=== PATIENT | female | born 1975 | race Two or more races ===

== ENCOUNTER 2024-04-20 09:50 | Emergency (ER) | payer MEDICAID, SELFPAY ==
[2024-04-20 09:57] VITALS: BP 119/83; PULSE 91; RESP 16; TEMP 36.8; O2SAT 100; BMI 34.5
--- NOTE | 2024-04-20 10:11 | XR_ITS ---
Examination: PA lateral chest 2 views TECHNIQUE: Upright PA lateral chest 2 views Exam date and time: April 20, 2024 1021 hours Comparison June 02, 2023 INDICATIONS: Onset chest pain today. FINDINGS: Normal heart size Lungs are clear. The osseous structures are intact IMPRESSION: No active disease
--- NOTE | 2024-04-20 10:17 | PD.EDRME ---
Rapid Medical Screening Exam RME Arrival date/time: 04/20/24 09:50 This is 48-year-old female here with complaints of epigastric pain radiating to her chest. I have greeted and performed a focused initial assessment of this patient. Initial appropriate labs ordered at this time. A comprehensive ED assessment and evaluation of the patient and analysis of all test and completion of medical decision making process will be conducted by additional ED provider. Chief Complaint: Chest Pain Time Seen by Provider: 04/20/24 09:55 Vital signs: Vital Signs Temperature 98.3 F 04/20/24 09:57 Pulse Rate 91 04/20/24 09:57 Respiratory Rate 16 04/20/24 09:57 Blood Pressure 119/83 04/20/24 09:57 Pulse Oximetry (%) 100 04/20/24 09:57 Oxygen Delivery Method Room Air 04/20/24 09:57
[2024-04-20 10:55] LABS: Basophils % (Auto) 0 % (0-2.5); Eosinophils # (Auto) 0.1 Thou/mm3 (0.0-0.5); Eosinophils % (Auto) 1 % (0-10); Hematocrit 42.3 % (36.0-46.0); Hemoglobin 14.5 g/dL (12.0-16.0); Immature Granulocytes % (Auto) 0 % (0-0); Immature Granulocytes Auto 0.03 Thou/mm3 (0.00-0.00); Lymphocytes # (Auto) 0.5 Thou/mm3 (1.0-4.8); Lymphocytes % (Auto) 4 % (10-50); Mean Corpuscular HGB Conc 34.3 g/dl (31.0-37.0); Mean Corpuscular Volume 88 fL (80-100); Monocytes # (Auto) 0.5 Thou/mm3 (0.0-0.8); Monocytes % (Auto) 4 % (0-12); Neutrophils # (Auto) 10.6 Thou/mm3 (1.8-7.7); Neutrophils % (Auto) 90 % (37-80); Nucleated Red Blood Cell % 0 /100 WBC (0); Platelet Count 131 Thou/mm3 (140-440); RDW Standard Deviation 40.7 fL (36.4-46.3); Red Blood Count 4.83 Miln/mm3 (4.00-5.20); White Blood Count 11.8 Thou/mm3 (3.6-11.0)
[2024-04-20 11:07] LABS: Partial Thromboplastin Time 27.2 Seconds (22.0-36.0); Prothrombin Time 10.7 Seconds (9.0-12.2)
[2024-04-20 11:11] LABS: B-Type Natriuretic Peptide < 20 pg/mL (0-100)
[2024-04-20] MEDS: ONDANSETRON ODT 4 MG TABRAP PO (11:28)
[2024-04-20] MEDS: LIDOCAINE VISCOUS 2% 15 ML UDC PO (11:28)
[2024-04-20] MEDS: MG HYD/AL HYD/SIME (Maalox Reg) SUSP 30 ML UDC PO (11:29)
[2024-04-20 11:46] LABS: Alanine Aminotransferase 41 U/L (10-49); Albumin, Serum 4.7 gm/dL (3.5-5.0); Albumin/Globulin Ratio 1.9 (1.2-2.2); Alkaline Phosphatase 122 U/L (46-116); Anion Gap 7 (7-16); Aspartate Amino Transferase 34 U/L (0-34); BUN/Creatinine Ratio 13 Ratio (12-20); Blood Urea Nitrogen 9 mg/dL (9-23); Calcium 9.7 mg/dL (8.3-10.6); Calcium (Corrected) 9.7 mg/dL (8.5-10.1); Carbon Dioxide 24.3 mMol/L (20.0-31.0); Chloride 107 mMol/L (98-107); Creatinine (Component) 0.7 mg/dL (0.6-1.3); Globulin 2.5 gm/dL (2.3-3.5); Glucose 116 mg/dL (74-106); Lipase 45 U/L (12-53); Osmolality,Calculated 275 (275-295); Potassium 4.2 mMol/L (3.4-5.1); Sodium 138 mMol/L (136-145); Total Protein 7.2 gm/dL (5.7-8.2); Troponin I < 0.002 ng/mL (0.0-0.045); eGFR > 60 See Note
--- NOTE | 2024-04-20 12:00 | PC.NURSE ---
Pt coming in from ED lobby c/o epigastric pain that has radiated to midline sternal chest pain since 6am this morning. Pt did state eating a lotta chili last night. Pt has hx of gastric ulcers , GERD, and hypotension. Pt connected to monitors at this time.
[2024-04-20 12:05] VITALS: BP 114/69; PULSE 79; RESP 13; TEMP 36.7; O2SAT 95
--- NOTE | 2024-04-20 12:12 | EDNOTE_ITS ---
ED Chest Pain RME/HPI General Chief Complaint: Chest Pain Stated Complaint: SHARP CHEST AND EPIGASTRIC PAIN X 0730; VOMITING Time Seen by Provider: 04/20/24 09:55 Arrival date/time: 04/20/24 09:50 RME / HPI RME / HPI narrative: 48-year-old female patient with no significant medical history, came in for evaluation regarding epigastric pain. Onset of symptoms since 730 this morning as epigastric pain, described as sharp pain, radiating to the substernal area, severity moderate. Patient also vomited, nonbloody severity mild. Denies any diarrhea or constipation. Patient told me that she ate chili last night. Patient abdominal surgery include laparoscopic cholecystectomy. Related Data Home Medications ?Medication ?Instructions ?Recorded ?Confirmed omeprazole 40 mg capsule,delayed 40 mg PO QDAY 09/08/20 08/18/21 release epinephrine 0.3 mg/0.3 mL See Rx Instructions .Route .COMPLEX 08/18/21 08/18/21 injection, auto-injector famotidine 20 mg tablet 203 mg PO QDAY 08/18/21 08/18/21 meloxicam 7.5 mg tablet 7.5 mg PO QDAY 08/18/21 08/18/21 sumatriptan succinate 100 mg tablet See Rx Instructions .Route .COMPLEX 08/18/21 08/18/21 Previous Rx's ?Medication ?Instructions ?Recorded aspirin 81 mg tablet,delayed 81 mg PO QDAY #30 tabs 11/25/21 release (Ecotrin Low Strength) midodrine 10 mg tablet 10 mg PO TID PRN LOW BLOOD 11/25/21 PRESSURE #45 tabs ibuprofen 800 mg tablet 800 mg PO TID PRN pain #30 tabs 02/23/23 albuterol sulfate 90 mcg/actuation 2 puff inhalation Q6H PRN 04/12/23 aerosol inhaler (Ventolin HFA) shortness of breath or wheezing #8.5 grams benzonatate 100 mg capsule 100 mg PO TID #14 caps 04/12/23 metoclopramide HCl 10 mg tablet 10 mg PO Q6H PRN nausea and 04/20/24 (Reglan) vomiting #20 tabs pantoprazole 40 mg tablet,delayed 40 mg PO QDAY #20 tabs 04/20/24 release (Protonix) Allergies Allergy/AdvReac Type Severity Reaction Status Date / Time meclizine Allergy DROPS BP; Verified 04/20/24 09:52 KEEPS AWAKE Review of Systems Review of Systems Narrative Review of Systems: Review of system reviewed and within normal limits except mentioned in HPI ED Exam Narrative Physical exam: VITAL SIGNS: Reviewed. GENERAL APPEARANCE: Alert and interactive, follows commands, no acute distress, HEAD AND FACE: Non-traumatic. ENT: PERRL, pink conjunctivitis, eyelid no trauma, Mucous membrane moist. NECK: Supple, nontender, no nuchal rigidity. CHEST: No tenderness, no crepitus, no paradoxical movement, no retractions. LUNGS: Clear, well ventilated, symmetric, no rales, no wheezing, no ronchi, no stridor, good breath sounds bilaterally. HEART: Regular rate, regular rhythm, no murmur, no gallops. ABDOMEN: Soft, positive bowel sounds, nondistended, no guarding, epigastric tenderness, no rebound, no masses, RECTAL: Deferred. GENITAL: Deferred. NEUROLOGICAL: Gross motor function intact sensory function intact, Appropriate for age. MUSCULOSKELETAL: low back nontender, full range of motion. EXTREMITIES: Nontender, full range of motion. SKIN: Color pink, dry, no rash, no lacerations, no abrasions, no contusions. LYMPHATICS: Deferred. Course Quality Measures none Orders Category Date Time Status EKG (ED ONLY) *Do not use* NOW Care 04/20/24 10:11 Completed EKG (ED Only) Stat Exams 04/20/24 10:11 Ordered XR chest 2V Stat Exams 04/20/24 10:11 Completed B-Type Natriuretic Peptide Stat Lab 04/20/24 10:38 Completed CBC Stat Lab 04/20/24 10:38 Completed Comprehensive Metabolic Panel Stat Lab 04/20/24 10:38 Completed Lipase Stat Lab 04/20/24 10:38 Completed Magnesium Stat Lab 04/20/24 10:38 Completed Partial Thromboplastin Time Stat Lab 04/20/24 10:38 Completed Prothrombin Time with INR Stat Lab 04/20/24 10:38 Completed Troponin I Stat Lab 04/20/24 10:38 Completed Ketorolac Inj [Toradol Inj] Med 04/20/24 12:11 Discontinued 30 mg IM X1 ONE Lidocaine 2% Viscous [Xylocaine 2% Viscous] Med 04/20/24 10:11 Discontinued 15 ml PO X1 ONE Metoclopramide [Reglan] Med 04/20/24 12:11 Discontinued 10 mg PO X1 ONE Ondansetron Odt [Zofran Odt] Med 04/20/24 10:11 Discontinued 4 mg PO X1 ONE mg Hyd/Al Hyd/May Susp [Maalox Susp] Med 04/20/24 10:11 Discontinued 30 ml PO X1 ONE Vital Signs Vital signs: Vital Signs Temperature 98.3 F 04/20/24 09:57 Pulse Rate 91 04/20/24 09:57 Respiratory Rate 16 04/20/24 09:57 Blood Pressure 119/83 04/20/24 09:57 Pulse Oximetry (%) 100 04/20/24 09:57 Oxygen Delivery Method Room Air 04/20/24 09:57 Chest Pain MDM Narrative MDM Narrative:: 48-year-old female patient with no significant medical history, came in for evaluation regarding epigastric pain. Onset of symptoms since 730 this morning as epigastric pain, described as sharp pain, radiating to the substernal area, severity moderate. Patient also vomited, nonbloody severity mild. Denies any diarrhea or constipation. Patient told me that she ate chili last night. Patient abdominal surgery include laparoscopic cholecystectomy. Cardiac workup all came back normal. Chest x-ray also came back unremarkable. CMP all came back unremarkable patient was given Toradol, GI cocktail, Reglan and Zofran with complete resolution of symptoms. Patient data External records reviewed:: None Clinical information provided by:: none Social determinants that could affect healthcare access:: none Patient has the following chronic illnesses:: None How is presenting disease/condition affected by chronic disease/condition?: no chronic disease Evaluation data The following diagnostics were reviewed and interpreted by me:: lab results, radiology exam(s) and EKG tracing(s) Lab and/or radiology exams considered but not ordered:: None Interpretation Summary: EKG as interpreted by me showed sinus rhythm, ventricular rate of 70 bpm, per interval 147 MS, ST segment elevation depression noted. Laboratory workup including troponin all came back normal. I personally reviewed and interpreted the x-ray of this patient. There is no acute abnormalities found, no infiltrates no pneumothorax no hemothorax normal chest x-ray. Review of other structures was without significant abnormal findings also. I additionally reviewed the radiologist report and agree with the interpretation. Medications / Prescriptions Medications or Prescriptions considered but not ordered:: None Medication administrations:: Medication Administration History Discontinued Medications Al Hydrox/Mg Hydrox/Simethicone (Mg Hyd/Al Hyd/May (Maalox Reg) Susp 30 Ml Udc) 30 ml PO X1 ONE Stop: 04/20/24 10:12 Last Admin: 04/20/24 11:29 Dose: 30 ml Documented By: JONATHAN Ketorolac Tromethamine (Ketorolac Inj 60 Mg/2 Ml Vial) 30 mg IM X1 ONE Stop: 04/20/24 12:12 Last Admin: 04/20/24 12:48 Dose: 30 mg Documented By: WESLEY Lidocaine HCl (Lidocaine Viscous 2% 15 Ml Udc) 15 ml PO X1 ONE Stop: 04/20/24 10:12 Last Admin: 04/20/24 11:28 Dose: 15 ml Documented By: JONATHAN Metoclopramide HCl (Metoclopramide 5 Mg Tablet) 10 mg PO X1 ONE Stop: 04/20/24 12:12 Last Admin: 04/20/24 12:48 Dose: 10 mg Documented By: GM Ondansetron HCl (Ondansetron Odt 4 Mg Tabrap) 4 mg PO X1 ONE Stop: 04/20/24 10:12 Last Admin: 04/20/24 11:28 Dose: 4 mg Documented By: JONATHAN Zojose Camilolan GI cocktail Toradol with complete resolution of symptoms Consultations Consultation(s) initiated? (list below): No Diagnosis Chest Pain Differential Diagnosis: pneumothorax, atypical chest pain, chest pain and other (Epigastric abdominal pain) Most likely diagnosis given after review of the tests above:: Epigastric abdominal pain Admission Indicated Admission indicated?: not indicated Admission Request Was there a request for admission?: No Disposition Plan Disposition Plan: Discharge Discharge Attestation Discharge Attestation: The patient and all family members were given an opportunity to ask questions and understood the discharge instructions. Discharge instructions specifically effects, indications for sooner follow up or return to the emergency department, and the expected course of current diagnosis. Patient condition: Stable Discharge Plan Plan Patient Disposition: HOME (Self Care) Disposition Comment: stable Prescriptions/Referrals Prescriptions/Med Rec: New metoclopramide HCl [Reglan] 10 mg tablet 10 mg PO Q6H PRN (Reason: nausea and vomiting) Qty: 20 0RF pantoprazole [Protonix] 40 mg tablet,delayed release (DR/EC) 40 mg PO QDAY Qty: 20 0RF No Action omeprazole 40 mg Capsule,Delayed Release(Dr/Ec) 40 mg PO QDAY sumatriptan succinate 100 mg tablet See Rx Instructions .ROUTE .COMPLEX Patient Comments: PLEASE SEE ATTACHED FOR DETAILED DIRECTIONS Rx Instructions: PLEASE SEE ATTATCHED FOR DETAILED DIRECTIONS meloxicam 7.5 mg tablet 7.5 mg PO QDAY famotidine 20 mg tablet 203 mg PO QDAY Patient Comments: TKAE 1 TABLET BY MOUTH AT BEDTIME epinephrine 0.3 mg/0.3 mL auto-injector See Rx Instructions .ROUTE .COMPLEX Patient Comments: USE DIRECTED FOR ACUTE ALLERGIC REACTIONS Rx Instructions: USE DIRECTED FOR ACUTE ALLERGIC REACTIONS aspirin [Ecotrin Low Strength] 81 mg tablet,delayed release (DR/EC) 81 mg PO QDAY Qty: 30 0RF midodrine 10 mg tablet 10 mg PO TID PRN (Reason: LOW BLOOD PRESSURE) Qty: 45 0RF Rx Instructions: do not give last dose of day after 6PM or within 4 hrs of bedtime ibuprofen 800 mg tablet 800 mg PO TID PRN (Reason: pain) Qty: 30 0RF benzonatate 100 mg capsule 100 mg PO TID Qty: 14 0RF albuterol sulfate [Ventolin HFA] 90 mcg/actuation HFA aerosol inhaler 2 puff inhalation Q6H PRN (Reason: shortness of breath or wheezing) Qty: 8.5 0RF Referrals: Andres Hilliard FNP [Primary Care Provider] - In 1 week Problem List Clinical Impression: Epigastric abdominal pain Patient/Caregiver Discharge Instructions Discharge Activity: activity as tolerated Education Materials: ED Epigastric Pain (Uncertain Cause) Additional Instructions: Thank you for the opportunity for serving you today. You are stable for discharged . You are advised to: Follow-up with your PCP in 1 to 2 days Return to ED for worsening of symptoms Increase oral fluids Take medication as prescribed Print Language: Puerto Rican Stand Alone Forms: Geovanna Award Info., Patient Portal Info Letter NELI/LUC Supervising Physician NELI/LUC Supervising Physician: MD Trav
[2024-04-20] MEDS: METOCLOPRAMIDE 5 MG TABLET 10 MG PO (12:48)
[2024-04-20] MEDS: KETOROLAC INJ 60 MG/2 ML VIAL 30 MG IM (12:48)
[2024-04-20 14:12] VITALS: BP 109/65; PULSE 73; RESP 18; TEMP 36.8; O2SAT 96
[2024-04-20 14:45] LABS: Bilirubin,Total 0.8 mg/dL (0.3-1.2)
[2024-04-20 15:09] VITALS: BP 114/68; PULSE 86; RESP 16; TEMP 36.9; O2SAT 95
== END 2024-04-20 15:15 | disposition home or self-care (01) ==
PROVIDERS: Nurse Practitioner Primary Care; Emergency Provider Emergency Medicine; PCP Nurse Practitioner Family
DX: R10.13 Epigastric pain (principal); R07.9 Chest pain, unspecified; R94.31 Abnormal electrocardiogram [ECG] [EKG]
CPT/HCPCS: 36415; 71046; 80053; 83690; 83735; 83880; 84484; 85025; 85610; 85730; 93005; 99283; J1885; J3490; Q0162; A9270

== ENCOUNTER 2024-09-12 07:30 | Emergency (ER) | payer MEDICAID, SELFPAY ==
[2024-09-12 07:31] VITALS: BMI 34.9
[2024-09-12 07:43] VITALS: BP 112/77; PULSE 66; RESP 17; TEMP 36.7; O2SAT 97; BMI 36.8
--- NOTE | 2024-09-12 07:47 | EKG_ITS ---
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
--- NOTE | 2024-09-12 07:48 | PD.EDRME ---
Rapid Medical Screening Exam [facility] Arrival date/time: 09/12/24 07:30 48-year-old female with no known medical history presents to the emergency room with a chief complaint of dizziness and lightheadedness x 2 days. Patient states her dizziness is worse with sudden positional changes. Patient also states even while sitting down she has a headache and feels like the room is spinning. I have greeted and performed a focused initial assessment of this patient. A comprehensive ED assessment and evaluation of the patient, analysis of all test results, and completion of the medical decision making process will be conducted by additional ED providers. Chief Complaint: Dizziness Vital signs: Vital Signs Temperature 98.1 F 09/12/24 07:43 Pulse Rate 66 09/12/24 07:43 Respiratory Rate 17 09/12/24 07:43 Blood Pressure 112/77 09/12/24 07:43 Pulse Oximetry (%) 97 09/12/24 07:43 Oxygen Delivery Method Room Air 09/12/24 07:43 Vital signs reviewed by provider: Yes
[2024-09-12 08:32] LABS: Collection Type, Urine Clean Catch
[2024-09-12 09:14] LABS: Bacteria,Urine Rare; Bilirubin,Urine Negative (Negative); Blood,Urine Negative (Negative); Clarity,Urine Clear (Clear/Hazy); Color,Urine Colorless (Lt Yel-Yel); Glucose, Urine Negative (Negative); Ketones,Urine Negative (Negative); Leukocyte Esterase,Urine Negative (Negative); Nitrite,Urine Negative (Negative); PH,Urine 6.5 (5.0-7.0); Protein,Urine Negative (Neg - Trace); RBC,Urine 1 /hpf (0-3); Specific Gravity,Urine 1.007 (1.001-1.035); Squamous Epithelial Cell,Urine 2 /hpf (0-5); Urobilinogen,Urine Negative mg/dL (0.0-1.0); WBC,Urine < 1 /hpf (0-5)
[2024-09-12 09:31] LABS: Basophils % (Auto) 1 % (0-2.5); Eosinophils # (Auto) 0.1 Thou/mm3 (0.0-0.5); Eosinophils % (Auto) 2 % (0-10); Hematocrit 42.1 % (36.0-46.0); Hemoglobin 14.1 g/dL (12.0-16.0); Immature Granulocytes % (Auto) 0 % (0-0); Immature Granulocytes Auto 0.02 Thou/mm3 (0.00-0.00); Lymphocytes # (Auto) 1.3 Thou/mm3 (1.0-4.8); Lymphocytes % (Auto) 23 % (10-50); Mean Corpuscular HGB Conc 33.5 g/dl (31.0-37.0); Mean Corpuscular Hemoglobin 29.7 pg (25.0-35.0); Mean Corpuscular Volume 89 fL (80-100); Monocytes # (Auto) 0.4 Thou/mm3 (0.0-0.8); Monocytes % (Auto) 7 % (0-12); Neutrophils # (Auto) 3.9 Thou/mm3 (1.8-7.7); Neutrophils % (Auto) 67 % (37-80); Nucleated Red Blood Cell % 0 /100 WBC (0); Platelet Count 157 Thou/mm3 (140-440); RDW Standard Deviation 42.3 fL (36.4-46.3); Red Blood Count 4.74 Miln/mm3 (4.00-5.20); White Blood Count 5.8 Thou/mm3 (3.6-11.0)
[2024-09-12 09:58] LABS: Alanine Aminotransferase 35 U/L (10-49); Albumin, Serum 4.4 gm/dL (3.5-5.0); Albumin/Globulin Ratio 1.8 (1.2-2.2); Alkaline Phosphatase 118 U/L (46-116); Anion Gap 4 (7-16); Aspartate Amino Transferase 27 U/L (0-34); BUN/Creatinine Ratio 10 Ratio (12-20); Bilirubin,Total 0.6 mg/dL (0.3-1.2); Blood Urea Nitrogen 8 mg/dL (9-23); Calcium 9.3 mg/dL (8.3-10.6); Calcium (Corrected) 9.3 mg/dL (8.5-10.1); Carbon Dioxide 28.3 mMol/L (20.0-31.0); Chloride 108 mMol/L (98-107); Creatinine (Component) 0.8 mg/dL (0.6-1.3); Globulin 2.4 gm/dL (2.3-3.5); Glucose 130 mg/dL (74-106); Osmolality,Calculated 279 (275-295); Potassium 4.4 mMol/L (3.4-5.1); Sodium 140 mMol/L (136-145); Total Protein 6.8 gm/dL (5.7-8.2); Troponin I < 0.002 ng/mL (0.0-0.045); eGFR > 60 See Note
--- NOTE | 2024-09-12 09:58 | PC.NURSE ---
AROUND 2040 PT CAME UP TO THIS RN TO REPORT SHE IS LEAVING AND DOESN'T WANT TO WAIT ANY LONGER
== END 2024-09-12 10:01 | disposition left against medical advice (07) ==
LOC: SERX 08:05
PROVIDERS: Nurse Practitioner Family; Emergency Provider Emergency Medicine
DX: R42 Dizziness and giddiness (principal); R51.9 Headache, unspecified; Z53.29 Procedure and treatment not carried out because of patient's decision for other reasons
CPT/HCPCS: 36415; 80053; 81001; 84484; 85025; 87086; 93005; 99281

== ENCOUNTER → 2024-09-25 | Outpatient (CLI) | payer MEDICAID, SELFPAY ==
--- NOTE | 2024-09-25 08:00 | XR_ITS ---
Examination: Screening digital mammography, bilateral Computer aided detection 3-D breast Tomosynthesis, bilateral Date and time of exam: September 25, 2024 0828 hours Compared to mammograms dating to May 27, 2016 Indication: Screening Technique: Nonmagnified MLO, CC views of the breasts to been obtained, reconstructed from 3-D Tomosynthesis images. R2 computer aided detection program utilized for evaluation of suspicious masses and/or abnormal calcifications. 3-D Tomosynthesis images obtained. Findings: Scattered areas of fibroglandular density. Benign calcifications. No interval suspicious masses Impression: BI-RADS category II: Benign Findings. Recommend 1 year follow-up mammogram.
== END | disposition home or self-care (01) ==
PROVIDERS: PCP Student in an Organized Health Care Education/Training Program; Referring Provider Nurse Practitioner Family; Visit Provider Nurse Practitioner Family
DX: Z12.31 Encounter for screening mammogram for malignant neoplasm of breast (principal); R92.323 Mammographic fibroglandular density, bilateral breasts; R92.1 Mammographic calcification found on diagnostic imaging of breast
CPT/HCPCS: 77063; 77067